=== PATIENT | female | born 1975 | race Caucasian/White ===

== ENCOUNTER → 2017-10-13 | Outpatient (CLI) | payer OTHER ==
[~2017-10-13] VITALS: Ht 160 cm; Wt 56.7 kg
[~2017-10-13] MED LIST: ZYRTEC10 M3 PO
== END | disposition home or self-care (01) ==
LOC: AMB 11:27
PROC: 0DJD8ZZ Inspection of Lower Intestinal Tract, Via Natural or Artificial Opening Endoscopic (ICD-10-PCS; principal; 2017-10-13)
DX: Z12.11 Encounter for screening for malignant neoplasm of colon (principal); Z83.71 Family history of colonic polyps; I48.91 Unspecified atrial fibrillation; Z79.82 Long term (current) use of aspirin; J30.9 Allergic rhinitis, unspecified; Z82.49 Family history of ischemic heart disease and other diseases of the circulatory system; Z80.3 Family history of malignant neoplasm of breast; Z82.61 Family history of arthritis; Z83.3 Family history of diabetes mellitus
CPT/HCPCS: J2250; J3010